=== PATIENT | male | born 1995 | race African-American/Black ===

== ENCOUNTER 2020-03-17 22:45 | Inpatient (IN) | payer MEDICAID ==
[~2020-03-17] VITALS: Ht 200.7 cm; Wt 68.4 kg
[2020-03-17 23:22] LABS: Basophils # (auto) 0 10 ^3/uL (0-0.2); Basophils % (auto) 0.4 % (0.0-2.0); Eosinophils # (auto) 0.1 10 ^3/uL (0-0.8); Eosinophils % (auto) 1.5 % (0.0-7.0); Hematocrit 42.3 % (41.0-53.0); Lymphocytes # (auto) 2.1 10 ^3/uL (0.4-5.4); Lymphocytes % (auto) 29.4 % (10.0-50.0); Mean Corpuscular Hemoglobin 27.3 pg (28.0-32.0); Mean Corpuscular Volume 82.8 fL (80.0-100.0); Monocytes # (auto) 0.4 10 ^3/uL (0-1.3); Monocytes % (auto) 5.9 % (0.0-12.0); Neutrophils # (auto) 4.5 10 ^3/uL (1.6-8.6); Neutrophils % (auto) 62.8 % (37.0-80.0); Nucleated Red Blood Cells % 0.2 %; Platelet Count (auto) 185 10^3/uL (140-450); Red Blood Cells 5.11 10^6/uL (4.5-5.90); White Blood Cell 7.2 10^3/uL (4.4-10.8)
[2020-03-17 23:41] LABS: Alanine Aminotransferase 89 U/L (16-61); Albumin 4.2 g/dL (3.4-5.0); Anion Gap 5 (5-15); Aspartate Aminotransferase 34 U/L (15-37); BUN/Creatinine Ratio 13.3; Blood Alcohol < 3.0 mg/dL (0-5); Blood Urea Nitrogen 16 mg/dL (7-18); Calcium 9.2 mg/dL (8.5-10.1); Carbon Dioxide 29 mmol/L (21-32); Chloride 104 mmol/L (98-107); GFR African American 95 mL/min; GFR Non-African American 78 mL/min; Glucose 82 mg/dL (74-106); Potassium 3.8 mmol/L (3.5-5.1); Sodium 138 mmol/L (136-145)
[2020-03-17 23:44] LABS: Alkaline Phosphatase 48 U/L (45-117); Bilirubin, Total 1.1 mg/dL (0.2-1.0); Total Protein 8.3 g/dL (6.4-8.2)
[2020-03-18] MEDS ORDERED: SODIUM CHLORIDE 0.9% 1,000 ML IV ONE ×3 (00:15→04:00)
[2020-03-18 02:13] LABS: Urine Bacteria NONE SEEN /hpf (None Seen); Urine Blood Negative /uL (Negative); Urine Mucus FEW (None Seen); Urine Specific Gravity 1.032 (1.001-1.035); Urine WBC 50 /hpf (0 - 3)
[2020-03-18 02:26] LABS: Amphetamine Screen, Urine NEGATIVE (NEGATIVE); Barbiturate Scree,Urine NEGATIVE (NEGATIVE); Benzodiazephine Screen, Urine NEGATIVE (NEGATIVE); Cannabinoid Screen, Urine POSITIVE (NEGATIVE); Cocaine Screen, Urine NEGATIVE (NEGATIVE); Opiate Scree,Urine NEGATIVE (NEGATIVE); Phencyclidine Screen, Urine NEGATIVE (NEGATIVE)
[2020-03-18] MEDS: DOPamine 1600MCG/ML D5W 250 ML IV SCH ×2 (03:42→19:44)
[2020-03-18] MEDS ORDERED: MORPHINE SULF INJ 2 MG/ML SYRINGE 1ML IV PRN (05:30)
[2020-03-18] MEDS ORDERED: NITROGLYCERIN 0.4 MG SL TAB SL PRN (05:30)
[2020-03-18] MEDS ORDERED: ONDANSETRON HCL 4 MG/2 ML VIAL IV PRN (05:30)
[2020-03-18] MEDS: FAMOTIDINE 20 MG TAB PO SCH ×2 (10:35→21:53)
[2020-03-18 11:39] LABS: Free T3 2.59 pg/mL (2.3-4.2); Free T4 (Free Thyroxine) 1.33 ng/dL (0.89-1.76)
--- NOTE | 2020-03-18 12:03 | NUR ---
pt received in [facility]lab pt slow to respond to questions. pt would not answer whether he understands procedure and was unable to give medical history or what medications he takes. however, pt was able to verbalize and give his mother's phone number and nodded and states, "okay" for RN to talk to his mother on the phone about his medical history.
[2020-03-18] MEDS ORDERED: VANCOMYCIN 1GM/250ML 250 ML IV ONE (12:12)
--- NOTE | 2020-03-18 12:33 | NUR ---
phone call from pt's mother mother made aware of pt's status. stated, "i'm on my way" to hospital.
[2020-03-18 12:50] LABS: INR 1.03 (0.9-1.15)
--- NOTE | 2020-03-18 13:05 | NUR ---
[employer] Officer updated on pt's status Spoke to Dr Guerra on the phone re pt's current status. Received new orders including cancellation of PPI procedure until further evaluation. Order carried out. Notified house sup of change of status.
--- NOTE | 2020-03-18 13:11 | NUR ---
obtained pt history from family met pt's mother, Tasha, in [facility]. pt's mother provided brief medical history and medication that patient takes. mother verbalized understanding of pt's status. all questions and concerns addressed as best as possible from a RN standpoint.
--- NOTE | 2020-03-18 15:22 | NUR ---
phone report called to JOHN Rousseau covering for OJHN Fields.
--- NOTE | 2020-03-18 16:00 | NUR ---
CAME ON GURNEY FROM ER, RECEIVED PATIENT ALERT AND ORIENTED X4, NOT IN DISTRESS, CLEAR SOUNDS IN BILATERAL UPPER AND LOWER LUNG SOUNDS, RR=16 VNR=057%, DEEP BREATHING AND COUGHING WAS ENCOURAGED, DEMONSTRATED AND VERBALIZED UNDERSTANDING, DENIED SHORT OF BREATH AND CHEST PAIN AT THIS MOMENT, SB AND SR R=57-68 ON TELE MONITOR, ABDOMEN SOFT WITH ACTIVE BS, LAST BM=03/17/20 REPORTED, GENERAL SKIN DRY AND INTACT, RADIAL AND PEDAL PULSES PALPABLE, CAP REFILL <3 SECONDS, RESTING ON BED, DENIED PAIN, HEAD OF BED ELEVATED, BED ON LOW POSITION, RAILS UP X2, CALL LIGHT ON REACH, INFUSING DOPAMINE DRIP ON LT AC IV SITE ORDERED, VS T=98.4 RR=18, OLF=829%, P=53, VM=866/82, WILL CONTINUE MONITORING.
[2020-03-18 17:00] VITALS: BP 132/82
[2020-03-18] MEDS ORDERED: RISP0.5T12 PO (18:56)
[2020-03-18] MEDS ORDERED: LORA0.5T20 PO (18:56)
--- NOTE | 2020-03-18 19:45 | NUR ---
Opening Shift Note Assumed care of patient, awake and alert. No S/S of distress/SOB or pain noted. Bed is in lowest locked position with bed rails up x2 and call light is within reach of the patient. Dopamine drip infusing as ordered. Seizure precautions in place with bed rails padded bilaterally for safety. Instructed on POC and to call for assist PRN.
--- NOTE | 2020-03-18 19:58 | NUR ---
REPORT WAS GIVEN TO THE ASSOCIATE FINANCIAL REPRESENTATIVE RN.
[2020-03-19 05:52] VITALS: BP 104/50
[2020-03-19 06:57] LABS: Basophils # (auto) 0 10 ^3/uL (0-0.2); Basophils % (auto) 0.3 % (0.0-2.0); Eosinophils # (auto) 0.1 10 ^3/uL (0-0.8); Eosinophils % (auto) 1.8 % (0.0-7.0); Hematocrit 42.4 % (41.0-53.0); Hemoglobin 14.3 g/dL (13.5-17.5); Lymphocytes # (auto) 1.6 10 ^3/uL (0.4-5.4); Mean Corpuscular Hemoglobin 27.6 pg (28.0-32.0); Mean Corpuscular Hgb Conc. 33.7 g/dL (32.0-36.0); Monocytes # (auto) 0.5 10 ^3/uL (0-1.3); Monocytes % (auto) 7.2 % (0.0-12.0); Neutrophils # (auto) 4.9 10 ^3/uL (1.6-8.6); Neutrophils % (auto) 68.7 % (37.0-80.0); Nucleated Red Blood Cells % 0.2 %; Platelet Count (auto) 181 10^3/uL (140-450); Red Blood Cells 5.18 10^6/uL (4.5-5.90); Red Cell Distribution Width 13.6 % (11.8-14.3); White Blood Cell 7.2 10^3/uL (4.4-10.8)
[2020-03-19 07:10] LABS: BUN/Creatinine Ratio 15.6; Calcium 8.9 mg/dL (8.5-10.1); Potassium 3.9 mmol/L (3.5-5.1)
--- NOTE | 2020-03-19 08:00 | NUR ---
Opening Shift Note Assumed care of patient, awake, alert and oriented X4. No S/S of distress/SOB or pain. Tele# 34, sinus bradycardia @ 49 bpm. IV to left antecubital, 18 gauge, patent and infusing Dopamine @ 9.143 ml/hr and right antecubital, 20 gauge, patent and saline locked. Instructed on POC and to call for assist PRN, verbalized understanding. Bed locked, in lowest position, call light within reach, seizure precautions in place, will continue to monitor for changes Q1hr and PRN.
[2020-03-19 08:51] VITALS: BP 114/56
[2020-03-19] MEDS: FAMOTIDINE 20 MG TAB PO SCH ×2 (10:13→22:18)
[2020-03-19 14:21] VITALS: BP 132/70
[2020-03-19 17:42] VITALS: BP 117/58
--- NOTE | 2020-03-19 19:16 | NUR ---
Care endorsed to JOHN Dobbs, night nurse.
[2020-03-19] MEDS ORDERED: LORazepam 2MG/ML-1ML VIAL IV PRN ×2 (19:30)
[2020-03-19 22:00] VITALS: BP 129/74
[2020-03-19] MEDS: DOPamine 1600MCG/ML D5W 250 ML IV SCH (22:18)
[2020-03-20 05:00] VITALS: BP 106/56
--- NOTE | 2020-03-20 07:45 | NUR ---
Opening Shift Note Assumed care of patient, awake and A&Ox4. No S/S of distress/SOB or pain. Bed rails up x2. Bed is in lowest, locked position. Seizure precautions in place. Instructed on POC and to call for assist PRN, will continue to monitor for changes Q1hr and PRN. Signed: 03/20/20 at 1113 by SN ANNI <Co-Signature Required> Co-Signed: 03/20/20 at 1113 by Tania Teresa RN
--- NOTE | 2020-03-20 08:00 | NUR ---
Morning note Patient resting in bed with even and unlabored respirations, no distress noted. Instructed patient on POC, fall precautions and to call for assistance as needed. patient verbalized understanding. Fall and seizure precautions in place.
[2020-03-20 09:00] VITALS: BP 109/50
[2020-03-20] MEDS: FAMOTIDINE 20 MG TAB PO SCH (09:08)
--- NOTE | 2020-03-20 10:20 | NUR ---
Patient off unit to MRI via wheelchair Respirations even and unlabored, no distress noted.
--- NOTE | 2020-03-20 10:50 | NUR ---
POC discussed with Dr. Eulalia CALZADA discussed POC with Dr. Guerra. Dr. Guerra aware of patient's decreased HR as low as SB 38 bpm while patient is sleeping. Okay to discharge per Dr. Guerra. Neurology to clear patient for discharge per Dr. Esteban.
--- NOTE | 2020-03-20 10:53 | NUR ---
Paged Dr. Hartmann RE: discharge clearance per Dr. Esteban
--- NOTE | 2020-03-20 11:00 | NUR ---
Patient returned to unit via wheelchair no distress noted. Call light within reach.
--- NOTE | 2020-03-20 11:15 | NUR ---
Patient okay for discharge per Dr. Hartmann No new discharge prescriptions per MD. Okay patient to have EEG done outpatient. Patient to follow up with neurologist in 1 week per .
[2020-03-20 13:00] VITALS: BP 130/78
--- NOTE | 2020-03-20 13:07 | NUR ---
PATIENT REFUSED EEG. PATIENT STATED THAT HE DID NOT NEED THE EXAM.
--- NOTE | 2020-03-20 13:55 | NUR ---
Patient's mother in hospital lobby requesting to speak with RN This RN spoke with patient's mother with permission from the patient. Patient's mother requesting update on patient's status and POC. Questions and concerns addressed.
--- NOTE | 2020-03-20 13:58 | NUR ---
Paged Dr. Esteban RE: discharge order
--- NOTE | 2020-03-20 14:42 | NUR ---
Discharge Discharge order and paperwork provided to the patient. Patient verbalized understanding. Informed patient that drivers license is suspended until cleared by neurology. Patient stated "But I didn't pass out." Informed patient that he is to follow up with neurology RE: drivers license. Patient verbalized understanding. (x2) IVs removed with aseptic technique, catheters intact. Dressings applied. Patient tolerated well, no trauma to sites. Telemonitor removed and returned. Patient reports having all personal belongings. Respirations even and unlabored, no distress noted. Patient refused wheelchair. Patient ambulated to hospital lobby with a steady gait accompanied by staff member.
== END 2020-03-20 14:45 | disposition home or self-care (01) | DRG 52 ==
LOC: EDBD 22:45 → ER 22:49 → TELE 22:50 → TELE-CENTR 03-18 15:50
PROVIDERS: ADMIT Nurse Practitioner; ATTEND Internal Medicine Nephrology
DX: G93.49 Other encephalopathy (principal); F20.2 Catatonic schizophrenia; Z53.9 Procedure and treatment not carried out, unspecified reason; R00.1 Bradycardia, unspecified; R56.9 Unspecified convulsions; R82.71 Bacteriuria; F12.90 Cannabis use, unspecified, uncomplicated; Z91.19 Patient's noncompliance with other medical treatment and regimen; Z83.3 Family history of diabetes mellitus; Z82.49 Family history of ischemic heart disease and other diseases of the circulatory system; Z79.899 Other long term (current) drug therapy
CPT/HCPCS: 36415; 36600; 70450; 70551; 71045; 80048; 80053; 80185; 80307; 80320; 81001; 82542; 82805; 83735; 84439; 84443; 84481; 84484; 85025; 85610; 87081; 87086; 93005; 93306; 96361; 96365; G0378